=== PATIENT | female | born 1960 | race Caucasian/White ===

== ENCOUNTER 2016-11-30 12:43 | Emergency (ER) | payer MEDICARE ==
[~2016-11-30] VITALS: Ht 165.1 cm; Wt 90.7 kg
[~2016-11-30 12:43] MED LIST: ACYCLOVIR400 MG PO; ASPIR LOW81 MG PO; B12,B-12,B 12500 MCG PO; BLOOD PRESSURE; FLEXERIL5 MG PO; LISINOPRIL; NEURONTIN600 MG PO; NORCO 325 MG-101 TAB PO; NORCO 325 MG-51 TAB PO; PERCOCET 325 MG1 TA7 PO; PREDNICOT10 MG PO; SOMA; SUBOXONE 2 MG-01 TA2 SL; SUBOXONE SL; TRIMOX500 MG PO; VICODIN 5/500 505 MG PO
[2016-11-30 14:46] VITALS: BP 145/91
[2016-11-30] MEDS ORDERED: NORCO 10-325 T1 EACH PO (14:56)
== END 2016-11-30 15:07 | disposition home or self-care (01) ==
LOC: ED 12:43
DX: S16.1XXA Strain of muscle, fascia and tendon at neck level, initial encounter (principal); F17.200 Nicotine dependence, unspecified, uncomplicated; Z88.6 Allergy status to analgesic agent; W18.30XA Fall on same level, unspecified, initial encounter; Y93.K1 Activity, walking an animal; Y92.9 Unspecified place or not applicable; Y99.9 Unspecified external cause status

== ENCOUNTER → 2016-12-28 | Outpatient (CLI) | payer MEDICARE ==
[~2016-12-28] MED LIST changes: +NORCO 10-325 T1 EACH PO
[2016-12-28 16:07] LABS: BASO % 0.1 % (0.0-1.0); EOS # 0.1 10*3/uL (0.0-0.4); EOS % 1.5 % (1.0-4.0); HEMATOCRIT 39.5 % (37.0-47.0); HEMOGLOBIN 13.2 g/dl (12.0-16.0); LYMPH # 3.6 10*3/uL (1.3-4.4); LYMPH % 48.9 % (27.0-41.0); MEAN CELL VOLUME 95.9 fl (81.0-99.0); MEAN CORPUSCULAR HGB CONC 33.4 g/dl (33.0-37.0); MEAN PLATELET VOLUME 10.9 fl (9.6-12.3); MONO # 0.4 10*3/uL (0.1-1.0); MONO % 5.9 % (3.0-9.0); NEUT # 3.2 10*3/uL (2.3-7.9); NEUT % 43.5 % (47.0-73.0); PLATELET COUNT AUTOMATED 295 10*3/uL (130-400); RED BLOOD COUNT 4.12 10*6/uL (4.10-5.10); RED CELL DISTRI WIDTH 13.5 % (0-14.5); WHITE BLOOD COUNT 7.4 10*3/uL (4.8-10.8)
[2016-12-28 16:47] LABS: ALBUMIN 4.4 gm/dl (3.1-4.5); ALKALINE PHOSPHATASE 63 U/L (45-117); BILIRUBIN, TOTAL 0.3 mg/dl (0.2-1.0); BUN 5 mg/dl (7-24); CARBON DIOXIDE 30 mmol/L (21-32); CHLORIDE 103 mmol/L (98-107); EST GLOM FILT AFRICAN AMERICAN > 60 ml/min; GLUCOSE 87 mg/dL (65-99); POTASSIUM 3.9 mmol/L (3.5-5.1); SGOT/AST 17 IU/L (3-35); SGPT/ALT 15 U/L (12-78); SODIUM 144 mmol/L (136-145); TOTAL PROTEIN 7.7 gm/dL (6.4-8.2)
== END | disposition home or self-care (01) ==
LOC: LAB 15:52
PROVIDERS: Internal Medicine
DX: M43.22 Fusion of spine, cervical region (principal); K21.0 Gastro-esophageal reflux disease with esophagitis; M54.6 Pain in thoracic spine

== ENCOUNTER 2017-03-28 16:38 | Emergency (ER) | payer MEDICARE ==
[~2017-03-28] VITALS: Ht 165.1 cm; Wt 79.4 kg
[2017-03-28 16:41] VITALS: BP 141/97
[2017-03-28] MEDS ORDERED: NEURONTIN100 MG PO (16:45)
[2017-03-28] MEDS ORDERED: PANTOPRAZOLE SO40 MG PO (16:46)
[2017-03-28] MEDS ORDERED: GABAPENTIN800 MG PO (16:46)
[2017-03-28] MEDS ORDERED: QUETIAPINE FUMA50 M1 PO (16:46)
[2017-03-28] MEDS ORDERED: TRAZODONE150 MG PO (16:46)
[2017-03-28] MEDS ORDERED: CYCLOBENZAPRINE5 M3 PO (18:27)
[2017-03-28] MEDS ORDERED: TESSALON PERLE100 M1 PO (18:27)
== END 2017-03-28 19:38 | disposition home or self-care (01) ==
LOC: ED 16:38
DX: S46.911A Strain of unspecified muscle, fascia and tendon at shoulder and upper arm level, right arm, initial encounter (principal); R05 Cough; R09.81 Nasal congestion; F17.200 Nicotine dependence, unspecified, uncomplicated; Z88.6 Allergy status to analgesic agent; Z79.899 Other long term (current) drug therapy; X58.XXXA Exposure to other specified factors, initial encounter; Y93.89 Activity, other specified; Y92.89 Other specified places as the place of occurrence of the external cause; Y99.8 Other external cause status

== ENCOUNTER → 2018-01-04 | Day surgery (SDC) | payer MEDICARE ==
[~2018-01-04] VITALS: Ht 165.1 cm; Wt 77.1 kg
[~2018-01-04] MED LIST changes: +CYCLOBENZAPRINE5 M3 PO; +GABAPENTIN800 MG PO; +NEURONTIN100 MG PO; +PANTOPRAZOLE SO40 MG PO; +QUETIAPINE FUMA50 M1 PO; +TESSALON PERLE100 M1 PO; +TRAZODONE100 MG PO
--- NOTE | ~2018-01-04 | O ---
[place], [place] OPERATIVE NOTE NAME: SCOTT TREVINO UNIT #: [id number] ROOM: DOCTOR: NIKITA LIZARRAGA MD BIRTHDATE: [birth year] DOS: 01/04/2018 PREOPERATIVE DIAGNOSIS: Screening examination. POSTOPERATIVE DIAGNOSIS: Screening examination. PROCEDURE: Colonoscopy. ENDOSCOPIST: Nikita Lizarraga MD [employer] PREVENTION SPECIALIST: IVANNA. ANESTHESIA: MAC. INDICATIONS: This is a 57-year-old lady with a history of previous colonoscopy which showed microscopic colitis, who is here for a screening examination. The procedure and its complications were explained to the patient in detail preoperatively. Complications that were discussed included but were not limited to bleeding, missed lesions, colon perforation, and prolonged pain. She agreed to proceed. DESCRIPTION OF PROCEDURE: After identifying the patient, the patient was brought to the operating suite and laid in the left lateral position. After IV sedation was administered, a timeout procedure was called and a digital rectal exam was performed. This was within normal limits. An adult colonoscope was now introduced into the anal canal and advanced sequentially into the rectum, sigmoid colon, descending colon, transverse colon and ascending colon up to the cecum. Upon reaching the cecum, the scope was withdrawn, the mucosa was completely normal in the entirety of the colon. There was mild diverticulosis that was visualized in the sigmoid colon, otherwise the colonic mucosa was normal. There was no evidence of colitis. Upon removal of the scope, the patient was brought back to the recovery room in a stable fashion. Total withdrawal time was approximately 8 minutes. There were no complications. Based on these findings, the patient is recommended to have another colonoscopy in 10 years or sooner if there were new symptoms. These findings were discussed with the patient's in the recovery room. [place], [place] OPERATIVE NOTE NAME: SCOTT TREVINO UNIT #: [id number] ROOM: DOCTOR: NIKITA LIZARRAGA MD BIRTHDATE: [birth year] Nikita Lizarraga MD CM:OPRECORD:OPERATIVE NOTE [id number] NIKITA LIZARRAGA MD 01/04/18 2011 interface
[2018-01-04 08:48] VITALS: BP 117/64
[2018-01-04 09:58] VITALS: BP 121/72
[2018-01-04 10:13] VITALS: BP 129/75
[2018-01-04 10:20] VITALS: BP 123/70
[2018-01-04 10:28] VITALS: BP 135/78
== END | disposition home or self-care (01) ==
LOC: SDC 01-01 12:30
DX: K57.30 Diverticulosis of large intestine without perforation or abscess without bleeding (principal); Z80.0 Family history of malignant neoplasm of digestive organs; I10 Essential (primary) hypertension; M19.90 Unspecified osteoarthritis, unspecified site; F17.210 Nicotine dependence, cigarettes, uncomplicated; Z87.19 Personal history of other diseases of the digestive system; Z98.890 Other specified postprocedural states; Z79.899 Other long term (current) drug therapy; Z88.8 Allergy status to other drugs, medicaments and biological substances; Z90.710 Acquired absence of both cervix and uterus; Z87.01 Personal history of pneumonia (recurrent)

== ENCOUNTER 2018-05-10 16:48 | Inpatient (IN) | payer MEDICARE ==
[~2018-05-10] VITALS: Ht 165.1 cm; Wt 81.4 kg
[2018-05-10] VITALS (7 sets, daily range): BP systolic 106–152; BP diastolic 59–70
--- NOTE | ~2018-05-10 | EKG ---
[place], [place] ELECTROCARDIOGRAM REPORT NAME: SCOTT TREVINO UNIT #: [id number] ROOM: 427 DOCTOR: MARS DRAFT REPORT BIRTHDATE: [birth year] [facility] Test Date: 2018-05-10 Test Time: 17:27:23 Pat Name: SCOTT TREVINO Department: ER Room: 427 Gender: F Furnace Operator: BLANCA : 1960 Requested By: KITTY HO DNP Order Number: [id number] Reading MD: Vincent Bolden MD Measurements Intervals Mcgrann Rate: 95 P: 58 SC: 226 QRS: 30 QRSD: 95 T: 26 QT: 369 QTc: 464 Interpretive Statements Sinus rhythm Prolonged SC interval Left atrial enlargement Electronically Signed On 05-11-2018 12:11:42 PDT by Vincent Bolden MD CM:EKGRPT:ELECTROCARDIOGRAM REPORT [id number] 1211 KITTY HO DNP EPIPHANY DRAFT REPORT KITTY HO DNP
[2018-05-10 17:09] LABS: BILIRUBIN NEGATIVE (NEGATIVE); BLOOD TRACE-INTACT (NEGATIVE); CLARITY CLEAR (CLEAR); COLOR YELLOW (YELLOW); GLUCOSE NEGATIVE (NEGATIVE); KETONE NEGATIVE (NEGATIVE); LEUKO ESTERASE NEGATIVE (NEGATIVE); NITRITE NEGATIVE (NEGATIVE); PH 6.5 (5.0-9.0); SPECIFIC GRAVITY <= 1.005 (1.005-1.030)
[2018-05-10 17:17] LABS: BACTERIA TRACE; WBC 0-2 wbc/hpf (0-5)
[2018-05-10 17:20] LABS: BASO % 0.2 % (0.0-1.0); EOS % 0.2 % (1.0-4.0); HEMATOCRIT 30.4 % (37.0-47.0); HEMOGLOBIN 10.2 g/dl (12.0-16.0); LYMPH # 4.2 10*3/uL (1.3-4.4); LYMPH % 22.3 % (27.0-41.0); MEAN CELL VOLUME 92.4 fl (81.0-99.0); MEAN CORPUSCULAR HGB CONC 33.6 g/dl (33.0-37.0); MEAN PLATELET VOLUME 9.9 fl (9.6-12.3); MONO # 1.2 10*3/uL (0.1-1.0); MONO % 6.2 % (3.0-9.0); NEUT # 13.4 10*3/uL (2.3-7.9); NEUT % 70.7 % (47.0-73.0); PLATELET COUNT AUTOMATED 459 10*3/uL (130-400); RED BLOOD COUNT 3.29 10*6/uL (4.10-5.10); RED CELL DISTRI WIDTH 12.8 % (0-14.5); WHITE BLOOD COUNT 18.9 10*3/uL (4.8-10.8)
[2018-05-10 17:35] LABS: ALBUMIN 2.8 gm/dl (3.1-4.5); ALKALINE PHOSPHATASE 142 U/L (45-117); BUN 5 mg/dl (7-24); CHLORIDE 95 mmol/L (98-107); CREATININE 0.63 mg/dL (0.55-1.02); LIPASE 52 U/L (73-393); POTASSIUM 3.3 mmol/L (3.5-5.1); SGOT/AST 41 IU/L (3-35); SGPT/ALT 51 U/L (12-78); SODIUM 134 mmol/L (136-145)
[2018-05-10 17:40] LABS: TROPONIN I < 0.015 ng/ml (<0.045)
[2018-05-11] VITALS: BP 97/54
[2018-05-11 06:52] LABS: BASO % 0.2 % (0.0-1.0); EOS # 0.1 10*3/uL (0.0-0.4); EOS % 0.8 % (1.0-4.0); HEMATOCRIT 25.2 % (37.0-47.0); LYMPH # 2.6 10*3/uL (1.3-4.4); LYMPH % 19.7 % (27.0-41.0); MEAN CELL VOLUME 95.1 fl (81.0-99.0); MEAN CORPUSCULAR HGB 30.2 pg (27.0-31.0); MEAN CORPUSCULAR HGB CONC 31.7 g/dl (33.0-37.0); MEAN PLATELET VOLUME 10.2 fl (9.6-12.3); MONO % 7.9 % (3.0-9.0); NEUT # 9.2 10*3/uL (2.3-7.9); NEUT % 71.1 % (47.0-73.0); PLATELET COUNT AUTOMATED 369 10*3/uL (130-400); RED BLOOD COUNT 2.65 10*6/uL (4.10-5.10); RED CELL DISTRI WIDTH 13.1 % (0-14.5)
[2018-05-11 07:13] LABS: ALBUMIN 2.3 gm/dl (3.1-4.5); ALKALINE PHOSPHATASE 111 U/L (45-117); BUN 5 mg/dl (7-24); CHLORIDE 105 mmol/L (98-107); CHOLESTEROL 135 mg/dL (<200); CREATININE 0.52 mg/dL (0.55-1.02); FREE T4 1.24 ng/dl (0.76-1.46); HDL CHOLESTEROL 28 mg/dl (40-60); LDL CHOLESTEROL 95 mg/dL (9-159); PHOSPHOROUS 2.3 mg/dL (2.5-4.9); POTASSIUM 3.9 mmol/L (3.5-5.1); SGOT/AST 31 IU/L (3-35); SGPT/ALT 40 U/L (12-78); SODIUM 140 mmol/L (136-145); TOTAL PROTEIN 6.5 gm/dL (6.4-8.2); TRIGLYCERIDES 62 mg/dl (<150); VLDL CHOLESTEROL 12 mg/dL (6-40)
[2018-05-11 07:17] LABS: THYROID STIM HORMONE (HS) 0.651 uIU/ml (0.358-4.75)
[2018-05-11 07:18] LABS: ACT PARTIAL THROMBO TIME 25.8 SECONDS (20.8-31.5)
[2018-05-11 07:58] LABS: VITAMIN D, 25-HYDROXY 19.2 ng/mL (30-100)
[2018-05-11 08:00] VITALS: BP 117/82
[2018-05-11 12:00] VITALS: BP 111/64
[2018-05-11 16:00] VITALS: BP 126/66
[2018-05-11 20:00] VITALS: BP 118/60
[2018-05-12] VITALS: BP 109/58
[2018-05-12 09:15] LABS: BASO % 0.2 % (0.0-1.0); EOS % 0.2 % (1.0-4.0); HEMATOCRIT 27.8 % (37.0-47.0); HEMOGLOBIN 9.1 g/dl (12.0-16.0); LYMPH # 1.6 10*3/uL (1.3-4.4); LYMPH % 12.9 % (27.0-41.0); MEAN CELL VOLUME 93.6 fl (81.0-99.0); MEAN CORPUSCULAR HGB 30.6 pg (27.0-31.0); MEAN CORPUSCULAR HGB CONC 32.7 g/dl (33.0-37.0); MEAN PLATELET VOLUME 9.7 fl (9.6-12.3); MONO # 0.7 10*3/uL (0.1-1.0); MONO % 5.5 % (3.0-9.0); NEUT # 10.2 10*3/uL (2.3-7.9); NEUT % 80.7 % (47.0-73.0); PLATELET COUNT AUTOMATED 403 10*3/uL (130-400); RED BLOOD COUNT 2.97 10*6/uL (4.10-5.10); WHITE BLOOD COUNT 12.7 10*3/uL (4.8-10.8)
[2018-05-12 12:00] VITALS: BP 126/61
[2018-05-12 16:00] VITALS: BP 120/72
[2018-05-12 20:00] VITALS: BP 120/67
[2018-05-13] VITALS: BP 126/56
[2018-05-13 06:45] LABS: BASO % 0.1 % (0.0-1.0); EOS # 0.1 10*3/uL (0.0-0.4); EOS % 1.4 % (1.0-4.0); HEMATOCRIT 27.6 % (37.0-47.0); HEMOGLOBIN 9.1 g/dl (12.0-16.0); LYMPH # 2.3 10*3/uL (1.3-4.4); LYMPH % 23.6 % (27.0-41.0); MEAN CELL VOLUME 92.3 fl (81.0-99.0); MEAN CORPUSCULAR HGB 30.4 pg (27.0-31.0); MEAN PLATELET VOLUME 9.8 fl (9.6-12.3); MONO # 0.8 10*3/uL (0.1-1.0); MONO % 8.2 % (3.0-9.0); NEUT # 6.6 10*3/uL (2.3-7.9); NEUT % 66.4 % (47.0-73.0); PLATELET COUNT AUTOMATED 464 10*3/uL (130-400); RED BLOOD COUNT 2.99 10*6/uL (4.10-5.10); RED CELL DISTRI WIDTH 13.1 % (0-14.5); WHITE BLOOD COUNT 9.9 10*3/uL (4.8-10.8)
[2018-05-13 07:17] LABS: ALBUMIN 2.3 gm/dl (3.1-4.5); BUN 7 mg/dl (7-24); CHLORIDE 100 mmol/L (98-107); CREATININE 0.49 mg/dL (0.55-1.02); POTASSIUM 3.6 mmol/L (3.5-5.1); SGOT/AST 18 IU/L (3-35); SGPT/ALT 29 U/L (12-78); SODIUM 138 mmol/L (136-145)
[2018-05-13 07:18] LABS: ALKALINE PHOSPHATASE 111 U/L (45-117); TOTAL PROTEIN 6.9 gm/dL (6.4-8.2)
[2018-05-13 07:30] VITALS: BP 110/62
[2018-05-13] MEDS ORDERED: VITAMIN D5000 UNI1 PO (11:09)
[2018-05-13] MEDS ORDERED: TESSALON PERLE100 MG PO (11:11)
[2018-05-13] MEDS ORDERED: LEVAQUIN750 M1 PO (11:11)
[2018-05-13 12:00] VITALS: BP 135/84
== END 2018-05-13 13:00 | disposition home or self-care (01) | DRG 871 ==
LOC: ED 16:48 → EDHOLD 18:23 → 4E 18:23
PROVIDERS: Internal Medicine; Nurse Practitioner Family; Student in an Organized Health Care Education/Training Program
DX: A41.9 Sepsis, unspecified organism (principal); E43 Unspecified severe protein-calorie malnutrition; J15.6 Pneumonia due to other Gram-negative bacteria; E87.1 Hypo-osmolality and hyponatremia; R73.9 Hyperglycemia, unspecified; D64.9 Anemia, unspecified; D47.3 Essential (hemorrhagic) thrombocythemia; D72.810 Lymphocytopenia; R74.0 Nonspecific elevation of levels of transaminase and lactic acid dehydrogenase [LDH]; E87.6 Hypokalemia; F17.210 Nicotine dependence, cigarettes, uncomplicated; G89.4 Chronic pain syndrome; E87.8 Other disorders of electrolyte and fluid balance, not elsewhere classified; Z71.6 Tobacco abuse counseling; Z87.01 Personal history of pneumonia (recurrent); Z88.6 Allergy status to analgesic agent; Z98.1 Arthrodesis status; Z82.49 Family history of ischemic heart disease and other diseases of the circulatory system; Z82.0 Family history of epilepsy and other diseases of the nervous system; Z84.89 Family history of other specified conditions; Z79.899 Other long term (current) drug therapy; Z68.29 Body mass index [BMI] 29.0-29.9, adult

== ENCOUNTER 2019-05-29 15:40 | Emergency (ER) | payer OTHER, MEDICARE ==
[~2019-05-29] VITALS: Ht 165.1 cm; Wt 72.6 kg
[~2019-05-29 15:40] MED LIST changes: +LEVAQUIN750 M1 PO; +TESSALON PERLE100 MG PO; +VITAMIN D5000 UNI1 PO
[2019-05-29 17:43] VITALS: BP 133/78
== END 2019-05-29 18:13 | disposition home or self-care (01) ==
LOC: ED 15:40
DX: S00.83XA Contusion of other part of head, initial encounter (principal); M54.5 Low back pain; I10 Essential (primary) hypertension; F17.210 Nicotine dependence, cigarettes, uncomplicated; Z79.899 Other long term (current) drug therapy; Z88.6 Allergy status to analgesic agent; W01.0XXA Fall on same level from slipping, tripping and stumbling without subsequent striking against object, initial encounter; Y93.89 Activity, other specified; Y92.89 Other specified places as the place of occurrence of the external cause; Y99.8 Other external cause status

== ENCOUNTER → 2019-06-25 | Outpatient (CLI) | payer OTHER, MEDICARE | END | disposition home or self-care (01) | LOC: US 17:00 | DX: E04.2 Nontoxic multinodular goiter (principal); Z88.8 Allergy status to other drugs, medicaments and biological substances ==

== ENCOUNTER → 2021-05-27 | Day surgery (SDC) | payer OTHER ==
[~2021-05-27] VITALS: Ht 165.1 cm; Wt 84.4 kg
[~2021-05-27] MED LIST changes: +AMBIEN CR6.25 MG PO; +LATU80TA PO; +TRAZODONE HCL300 MG PO; -TRAZODONE100 MG PO
[2021-05-27 07:20] VITALS: BP 132/75
[2021-05-27 09:20] VITALS: BP 136/78
[2021-05-27 09:30] VITALS: BP 141/76
[2021-05-27 09:45] VITALS: BP 156/78
== END | disposition home or self-care (01) ==
LOC: SDC 05-24 09:30
PROVIDERS: ATTEND Surgery
DX: Z12.11 Encounter for screening for malignant neoplasm of colon (principal); K63.5 Polyp of colon; K57.30 Diverticulosis of large intestine without perforation or abscess without bleeding; I10 Essential (primary) hypertension; Z90.710 Acquired absence of both cervix and uterus; F17.210 Nicotine dependence, cigarettes, uncomplicated; M19.90 Unspecified osteoarthritis, unspecified site; Z79.899 Other long term (current) drug therapy; Z20.822 Contact with and (suspected) exposure to COVID-19

== ENCOUNTER 2024-05-24 20:51 | Emergency (ER) | payer BC, OTHER ==
[~2024-05-24] VITALS: Ht 165.1 cm; Wt 81.6 kg
[2024-05-24 21:01] VITALS: BP 124/84
[2024-05-24] MEDS ORDERED: REPATHA SY140 MG/1 M SQ (21:02)
[2024-05-24] MEDS ORDERED: RESTORIL30 M1 PO (21:03)
[2024-05-24] MEDS ORDERED: NEBIVOLOL HCL20 MG PO (21:03)
[2024-05-24] MEDS ORDERED: ATORVASTATIN CA80 M1 PO (21:03)
[2024-05-24] MEDS ORDERED: VAZALORE81 MG PO (21:04)
[2024-05-24] MEDS ORDERED: ZOLOFT100 MG PO (21:04)
[2024-05-24] MEDS ORDERED: WEGOVY0.25 MG/0. SQ (21:05)
[2024-05-24] MEDS ORDERED: Promethazine Hydrochloride 25 MG/ML VIAL IV ONE (21:20)
[2024-05-24] MEDS ORDERED: SODIUM CHLORIDE 0.9% 500 ML IV ONE (21:20)
[2024-05-24 21:32] LABS: BASO % 0.2 % (0.0-1.0); EOS % 0.1 % (1.0-4.0); HEMATOCRIT 42.7 % (37.0-47.0); MEAN CELL VOLUME 89.5 fl (81.0-99.0); MEAN CORPUSCULAR HGB CONC 33.5 g/dl (33.0-37.0); MEAN PLATELET VOLUME 10.9 fl (9.6-12.3); MONO # 0.5 10*3/uL (0.1-1.0); MONO % 4.1 % (3.0-9.0); NEUT # 9.2 10*3/uL (2.3-7.9); NEUT % 72.7 % (47.0-73.0); PLATELET COUNT AUTOMATED 360 10*3/uL (130-400); RED BLOOD COUNT 4.77 10*6/uL (4.10-5.10); WHITE BLOOD COUNT 12.6 10*3/uL (4.8-10.8)
[2024-05-24 21:52] LABS: ALKALINE PHOSPHATASE 119 U/L (46-116); BUN 18 mg/dl (9-23); CHLORIDE 105 mmol/L (98-107); LIPASE 41 U/L (12-53); POTASSIUM 3.9 mmol/L (3.4-5.1); SGPT/ALT 16 U/L (5-49); TOTAL PROTEIN 8.3 gm/dL (6.0-8.0)
[2024-05-24] MEDS ORDERED: Ondansetron4 MG PO (23:29)
== END 2024-05-24 23:33 | disposition home or self-care (01) ==
LOC: ED 20:51
PROVIDERS: Internal Medicine
DX: T50.991A Poisoning by other drugs, medicaments and biological substances, accidental (unintentional), initial encounter (principal); R11.2 Nausea with vomiting, unspecified; I10 Essential (primary) hypertension; F17.210 Nicotine dependence, cigarettes, uncomplicated; Z88.5 Allergy status to narcotic agent; Z98.890 Other specified postprocedural states; Z90.710 Acquired absence of both cervix and uterus; Y92.89 Other specified places as the place of occurrence of the external cause